=== PATIENT | female | born 1940 | race Two or more races ===

== ENCOUNTER 2021-03-15 00:50 | Emergency (ER) | payer OTHER ==
[2021-03-15] MEDS ORDERED: EPINEPHrine 1 MG/10 ML Abboject SYRINGE ONE (00:58)
[2021-03-15] MEDS ORDERED: Atropine Sulfate 1 mg/10 ml Syringe ONE (00:58)
[2021-03-15] MEDS ORDERED: Norepinephrine 8 MG/0.9% NS 250 ML ONE (01:08)
[2021-03-15] MEDS ORDERED: Fentanyl 100 MCG/2 ML VIAL ONE ×2 (01:17→01:27)
[2021-03-15 02:15] LABS: Hemoglobin 17.1 g/dL (12.0-16.0); Mean Corpuscular HGB CONC 31.6 g/dL (32.0-36.0); Mean Corpuscular Hemoglobin 29.7 pg (27.0-31.0); Mean Corpuscular Volume 94.1 fL (78.0-98.0); Platelet Count 363 thou/uL (130-400); RBC Distribution Width 14.1 % (11.5-14.5); Red Blood Cell (RBC) Count 5.76 mill/uL (4.20-5.40); White Blood Cell (WBC) Count 26.6 thou/uL (4.8-10.8)
[2021-03-15 02:32] LABS: Band 2 % (5-11); Hypochromia SLIGHT = 6-15 cells (100X) (0-5/hpf); Lymphocytes 37 % (21-51); MDiff Complete? YES; Monocytes 7 % (0-10); Neutrophil 51 % (42-75); Platelet Morphology Comment Appears Adequate; Reactive Lymphocytes 3 % (0-10)
[2021-03-15 02:34] LABS: Prothrombin Time 13.5 sec (12.0-14.7)
[2021-03-15 02:39] LABS: PTT 181.7 sec (22.9-36.1)
[2021-03-15 02:48] LABS: SARS-CoV-2 NAA Rapid Test Not Detected (NotDetected)
[2021-03-15 03:26] LABS: ALT (SGPT) 17 U/L (8-55); AST (SGOT) 28 U/L (5-34); Albumin 4.7 g/dL (3.4-4.8); Alkaline Phosphatase 179 U/L (40-110); Anion Gap 28 mmol/L (10-20); BUN (Urea Nitrogen) 19 mg/dL (9.8-20.1); Bilirubin, Total 0.2 mg/dL (0.2-1.2); Calc. Creatinine Clearance 0 mL/min (70-130); Calcium 9.8 mg/dL (7.8-10.44); Carbon Dioxide 20 mmol/L (23-31); Chloride 99 mmol/L (98-107); Globulin 5.5 g/dL (2.4-3.5); Glucose 177 mg/dL (83-110); Potassium 3.6 mmol/L (3.5-5.1); Protein, Total 10.2 g/dL (5.8-8.1); Sodium 143 mmol/L (136-145)
== END 2021-03-15 02:25 | disposition expired ==
LOC: EDBD 00:50 → ERS 00:50
DX: I46.9 Cardiac arrest, cause unspecified (principal); I21.09 ST elevation (STEMI) myocardial infarction involving other coronary artery of anterior wall; I21.19 ST elevation (STEMI) myocardial infarction involving other coronary artery of inferior wall; I21.29 ST elevation (STEMI) myocardial infarction involving other sites; R57.0 Cardiogenic shock; Z20.822 Contact with and (suspected) exposure to COVID-19
CPT/HCPCS: 0240U; 31500; 71045; 80053; 82962; 84484; 85025; 85610; 85730; 92950; 93005; 94002; 96374; 96375; 96376; 99285; 36416; J0171; J0461; J3010